=== PATIENT | female | born 1995 | race Caucasian/White ===

== ENCOUNTER 2017-08-14 12:18 | Emergency (ER) | payer BC ==
[~2017-08-14] VITALS: Ht 160 cm; Wt 60.3 kg
[~2017-08-14 12:18] MED LIST: ADVIL100 MG PO; ALBUTEROL2.5 MG/0.1 INH; CLONIDINE HCL0.2 M2 GT; FOCALIN XR15 MG PO; HYDROCODON-ACE1 EAC7 PO; HYOSCYAMINE0.125 MG PO; IBUPROFEN 800800 M1 PO; MUCINEX600 MG PO; NAPROSYN500 MG PO; ONDANSETRON HCL4 M2 PO; ULTRAM50 MG PO; [UNRECOGNIZED DRUG - OTHER] PO
[2017-08-14] MEDS ORDERED: KEPPRA 500 MG500 MG PO (12:23)
[2017-08-14] MEDS ORDERED: ANXIETY MED (12:24)
[2017-08-14 12:53] LABS: ABSOLUTE EOSINOPHILS 0.2 thou/uL (0.0-0.7); ABSOLUTE LYMPHOCYTES 3.7 thou/uL (0.8-5.3); ABSOLUTE MONOCYTES 0.6 thou/uL (0.0-1.2); ABSOLUTE NEUTROPHILS 8.6 thou/uL (1.6-8.1); BASOPHILS 0.3 %; EOSINOPHILS 1.2 %; HEMATOCRIT 39.6 % (37.0-47.0); HEMOGLOBIN 13.3 gm/dL (12.0-15.0); LYMPHOCYTES 28.3 %; MCH 29.6 pg (26.0-34.0); MCHC 33.6 g/dL (28.0-37.0); MCV 87.9 fL (80.0-100.0); MONOCYTES 4.5 %; MPV 8.1 fl. (7.2-11.1); NUCLEATED RBCS 0 /100WBC; PLATELET COUNT* 279 thou/uL (150-400); POLYS 65.7 %; WBC 13.1 thou/uL (4.0-11.0)
[2017-08-14 12:58] LABS: URINE BILIRUBIN NEGATIVE (Negative); URINE BLOOD 1+ (Negative); URINE CLARITY CLEAR; URINE COLOR YELLOW; URINE GLUCOSE-RANDOM NEGATIVE (Negative); URINE KETONES NEGATIVE (Negative); URINE LEUKOCYTES-REFLEX NEGATIVE (Negative); URINE NITRITE-REFLEX NEGATIVE (Negative); URINE PROTEIN NEGATIVE (Negative); URINE UROBILINOGEN 0.2 E.U./dl (0.2-1.0)
[2017-08-14 13:05] LABS: CALCIUM 8.2 mg/dL (8.5-10.1); CREATININE 0.6 mg/dL (0.6-1.3); POTASSIUM 3.7 mmol/L (3.5-5.1)
[2017-08-14 13:05] LABS: AMP/METHAMP Negative (Negative); BARBITURATES Negative (Negative); BENZODIAZEPINES Negative (Negative); COCAINE Negative (Negative); METHADONE Negative (Negative); OPIATES Negative (Negative); PCP Negative (Negative); THC POSITIVE (Negative)
[2017-08-14 13:09] LABS: HYALINE CASTS 0-3 Few /LPF (None Seen); MUCUS 0-3 Light strn/LPF (None Seen); SQUAMOUS >10 Many /LPF (0-3)
[2017-08-14 13:10] LABS: ALBUMIN 3.6 g/dL (3.4-5.0); TOTAL BILIRUBIN 0.3 mg/dL (<0.1-1.0); TOTAL PROTEIN 7.1 g/dL (6.4-8.2)
[2017-08-14 13:10] LABS: BACTERIA-REFLEX 1-9 Few /HPF (None Seen); CRYSTALS None Seen /LPF (None Seen); URINE RBC 0-2 Rare /HPF (0-2); URINE WBC-REFLEX 0-5 Rare /HPF (0-5)
[2017-08-14 17:21] VITALS: BP 99/40
--- NOTE | 2017-08-14 18:45 | EKG ---
[place] [address] ELECTROCARDIOGRAM REPORT Name: MIRELLA DALY 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
== END 2017-08-14 17:23 | disposition home or self-care (01) ==
LOC: M.ERS 12:18
PROVIDERS: Nurse Practitioner Family
DX: R55 Syncope and collapse (principal); N94.6 Dysmenorrhea, unspecified; J45.909 Unspecified asthma, uncomplicated; Z88.6 Allergy status to analgesic agent